=== PATIENT | female | born 1960 | race Caucasian/White ===

== ENCOUNTER → 2018-07-02 | Outpatient (CLI) | payer BC ==
--- NOTE | 2018-07-04 09:45 | MM ---
Reason for exam: screening (asymptomatic). Last mammogram was performed 1 year and 3 months ago. History: Patient is postmenopausal. Family history of breast cancer in sister at age 57. Physical Findings: A clinical breast exam by your physician is recommended on an annual basis and results should be correlated with mammographic findings. MG 3D Screening Mammo W/Cad Bilateral CC and MLO view(s) were taken. Prior study comparison: April 07, 2017, bilateral MG 3d screening mammo w/cad. June 09, 2015, bilateral MG screening mammo w CAD. The breast tissue is heterogeneously dense. This may lower the sensitivity of mammography. New grouped 1 o'clock left breast microcalcifications on 3D, these have a somewhat eggshell, round distribution suggesting early oil cyst formation. ASSESSMENT: Probably benign, BI-RAD 3 RECOMMENDATION: Follow-up diagnostic mammogram of the left breast in 6 months.
== END | disposition home or self-care (01) ==
LOC: RADMAMWWP 13:16
PROVIDERS: ATTEND Internal Medicine Geriatric Medicine
DX: Z12.31 Encounter for screening mammogram for malignant neoplasm of breast (principal)
CPT/HCPCS: 77063; 77067

== ENCOUNTER → 2019-02-18 | Outpatient (CLI) | payer BC ==
--- NOTE | 2019-02-18 14:51 | MM ---
Reason for exam: follow-up at short interval from prior study. Last mammogram was performed 8 months ago. History: Patient is postmenopausal. Family history of breast cancer in sister at age 57. Physical Findings: Nurse did not find any significant physical abnormalities on exam. MG 3D Diag Mammo W/Cad LT CC, MLO, and LM view(s) were taken of the left breast. Prior study comparison: July 02, 2018, bilateral MG 3d screening mammo w/cad. April 07, 2017, bilateral MG 3d screening mammo w/cad. The breast tissue is heterogeneously dense. This may lower the sensitivity of mammography. There is a rounded group of 5mm calcifications on the left appearing as developing fat necrosis, 6 month follow up recommended. These results were verbally communicated with the patient and result sheet given to the patient on 02/18/19. ASSESSMENT: Probably benign, BI-RAD 3 RECOMMENDATION: Follow-up diagnostic mammogram of both breasts in 6 months. Back on schedule.
== END | disposition home or self-care (01) ==
LOC: RADMAMWWP 13:32
PROVIDERS: ATTEND Internal Medicine Geriatric Medicine
DX: R92.8 Other abnormal and inconclusive findings on diagnostic imaging of breast (principal)
CPT/HCPCS: 77061; 77065

== ENCOUNTER → 2020-02-11 | Outpatient (CLI) | payer OTHER ==
--- NOTE | 2020-02-11 11:57 | BD ---
EXAMINATION TYPE: Axial Bone Density DATE OF EXAM: 02/11/2020 COMPARISON: NONE CLINICAL HISTORY: Postmenopausal female. Osteoporosis border. Height: 5 FT 3 1/2 IN Weight: 132 FRAX RISK QUESTIONS: Alcohol (3 or more units per day): NO Family History (Parent hip fracture): NO Glucocorticoids (More than 3mos): NO (Ex: prednisone, prednisolone, methylprednisolone, dexamethasone, and hydrocortisone). History of Fracture in Adulthood: NO Secondary Osteoporosis: 1. Type 1 Diabetes: NO 2. Hyperthyroidism: NO 3. Menopause before 45: NO 4. Malnutrition: NO 5. Chronic liver disease: NO Rheumatoid Arthritis: NO Current Tobacco Use: NO RISK FACTORS HISTORY OF: Family History of Osteoporosis: NO Active: YES Postmenopausal woman: AGE 49 MEDICATIONS: Additional Medications: NONE Additional History: EXAM MEASUREMENTS: Bone mineral densitometry was performed using the [employer] System. Bone mineral density as measured about the Lumbar spine is: ----- L1-L4(G/cm2): 1.210 T Score Values are as follows: ----- L2: 0.9 ----- L3: 1.0 ----- L4: -1.4 ----- L1-L4: 0.3 BASELINE Bone mineral density about the R hip (g/cm2): 0.956 Bone mineral density about the L hip (g/cm2): 0.948 T Score values are as follows: -----R Neck: -0.6 -----L Neck: -0.6 -----R Total: 0.0 -----L Total: 0.1 BASELINE IMPRESSION: Normal (Values between +1 and -1 indicate normal bone mass). Consider repeating this study in 5 year s or sooner if there is some new clinical indication. NOTE: T-SCORE=SD OF THE YOUNG ADULT MEAN.
--- NOTE | 2020-02-12 11:24 | MM ---
Reason for exam: screening (asymptomatic). Last mammogram was performed 1 year ago. History: Patient is postmenopausal. Family history of breast cancer in sister at age 57. Physical Findings: A clinical breast exam by your physician is recommended on an annual basis and results should be correlated with mammographic findings. MG 3D Screening Mammo W/Cad Bilateral CC and MLO view(s) were taken. Prior study comparison: February 18, 2019, left breast MG 3d diag mammo w/cad LT. July 02, 2018, bilateral MG 3d screening mammo w/cad. The breast tissue is heterogeneously dense. This may lower the sensitivity of mammography. Stable benign calcifications. There is no discrete abnormality. No significant changes when compared with prior studies. ASSESSMENT: Benign, BI-RAD 2 RECOMMENDATION: Routine screening mammogram of both breasts in 1 year.
== END | disposition home or self-care (01) ==
LOC: RADMAMWWP 08:18
PROVIDERS: ATTEND Internal Medicine Geriatric Medicine
DX: Z12.31 Encounter for screening mammogram for malignant neoplasm of breast (principal); M81.0 Age-related osteoporosis without current pathological fracture
CPT/HCPCS: 77063; 77067; 77080

== ENCOUNTER → 2020-07-09 | Outpatient (CLI) | payer OTHER ==
[2020-07-09 14:52] LABS: Basophils % (A) 0 %; Eosinophils % (A) 0 %; HCT 39.1 % (34.0-46.0); HGB 13.1 gm/dL (11.4-16.0); Lymphocytes # (A) 1.5 k/uL (1.0-4.8); Lymphocytes % (A) 21 %; MCH 31.4 pg (25.0-35.0); MCHC 33.5 g/dL (31.0-37.0); MCV 93.9 fL (80.0-100.0); Mean Platelet Volume 7.5; Monocytes # (A) 0.3 k/uL (0-1.0); Monocytes % (A) 4 %; Neutrophils # (A) 5.4 k/uL (1.3-7.7); Neutrophils % (A) 74 %; Platelet Count 322 k/uL (150-450); RBC 4.16 m/uL (3.80-5.40); RDW 12.9 % (11.5-15.5); WBC 7.3 k/uL (3.8-10.6)
[2020-07-09 15:19] LABS: ALT 20 U/L (4-34); AST 26 U/L (14-36); African American GFR (CKD) >90 (>60 ml/min/1.73 sqM); Albumin 4.9 g/dL (3.5-5.0); Alkaline Phosphatase 70 U/L (38-126); Anion Gap 11 mmol/L; Blood Urea Nitrogen 19 mg/dL (7-17); Calcium 11.1 mg/dL (8.4-10.2); Carbon Dioxide 29 mmol/L (22-30); Chloride 102 mmol/L (98-107); Glucose 115 mg/dL (74-99); Non-African American GFR(CKD) >90 (>60 ml/min/1.73 sqM); Potassium 4.8 mmol/L (3.5-5.1); Sodium 142 mmol/L (137-145); Total Bilirubin 0.3 mg/dL (0.2-1.3); Total Protein 9.7 g/dL (6.3-8.2)
--- NOTE | 2020-07-09 15:30 | XR ---
EXAMINATION TYPE: XR bone survey complete DATE OF EXAM: 07/09/2020 COMPARISON: NONE HISTORY: 59-year-old female multiple myeloma. TECHNIQUE: 16 views FINDINGS: Calvarium: No punched-out lytic lucencies clearly identified. Cervical spine: Uncovertebral joint arthropathy. Mild endplate spondylosis. Some reversal of the norm al cervical lordosis. No suspicious lytic lesion. No predental space widening or prevertebral soft ti ssue swelling. Thoracic spine: 12 rib bearing thoracic vertebral bodies. Also abnormal enlargement and lucency of th e right T11 pedicle. Anterior wedging deformity of T11 kyphotic deformity centered at this level. Lumbar spine: Hypertrophic facet arthropathy with grade 1 anterolisthesis L5-S1. No vertebral georgie sommer collapse. CHEST: Heart normal size. Lungs and pleural spaces are clear. No discrete lytic lesion identified of the ribs or clavicles.. Left humerus: A couple scattered 6 mm and smaller ovoid lucencies within the occipital third humeral shaft. Right humerus: Approximately 4 round lucencies in the shaft measuring up to 1.1 cm proximally. Pelvis: Overlying bowel content. No definite suspicious punched-out lytic lucency. Femurs: Subtle 7 mm round lucency in the intramedullary space of the proximal left femoral shaft. No endosteal scalloping seen. IMPRESSION: 1. Myelomatous involvement of T11 with pathologic mild anterior compression fracture. 2. Additional scattered myelomatous lucencies involving bilateral humeri and proximal left femoral sh aft.
[2020-07-10 09:55] LABS: Protein, Total 8.7 g/dL (6.2-8.2)
[2020-07-13 14:19] LABS: Albumin 4.39 g/dL (3.80-4.90); Gamma Globulin 2.37 g/dL (0.70-1.50)
== END | disposition home or self-care (01) ==
LOC: RADXRMAIN 13:08
PROVIDERS: ATTEND Internal Medicine Geriatric Medicine
DX: M48.54XA Collapsed vertebra, not elsewhere classified, thoracic region, initial encounter for fracture (principal); C90.00 Multiple myeloma not having achieved remission
CPT/HCPCS: 77075; 80053; 83970; 84165; 85025

== ENCOUNTER 2020-08-04 11:48 | Day surgery (SDC) | payer OTHER ==
[2020-08-03 09:06] VITALS: BMI 23.3
[~2020-08-04 11:48] MED LIST: LACTATED RINGERS 1,000 ML IV SCH
[2020-08-04 12:14] VITALS: RESP 16; TEMP 98.6
[2020-08-04] MEDS ORDERED: LIDOCAINE 1% (10MG/ML) FOR IV START INTRADERMA ONE (12:33)
[2020-08-04 12:35] LABS: Glucose,Whole Blood 92 mg/dL (75-99)
[2020-08-04] MEDS ORDERED: fentaNYL (PF) 50 MCG/ML 2 ML AMP ONE (12:45)
[2020-08-04] MEDS ORDERED: PROPOFOL 10 MG/ML 20 ML VIAL IV ONE (12:45)
[2020-08-04 13:20] VITALS: BP 122/61; PULSE 75
[2020-08-04 14:33] LABS: Basophils % (A) 0 %; Eosinophils % (A) 0 %; HGB 13.1 gm/dL (11.4-16.0); Lymphocytes % (A) 24 %; MCHC 32.7 g/dL (31.0-37.0); Monocytes # (A) 0.3 k/uL (0-1.0); Monocytes % (A) 4 %; Neutrophils # (A) 5.7 k/uL (1.3-7.7); Neutrophils % (A) 70 %; Platelet Count 324 k/uL (150-450); RBC 4.21 m/uL (3.80-5.40); RDW 14.3 % (11.5-15.5); Reticulocyte % 1.6 % (0.5-2.0); WBC 8.2 k/uL (3.8-10.6)
--- NOTE | 2020-08-05 03:39 | OP ---
OPERATIVE REPORT PROCEDURE PERFORMED: Bone marrow aspirate and biopsy. INDICATION: Suspected multiple myeloma. She has spontaneous pathologic fracture of her back and elevated M protein. DESCRIPTION OF PROCEDURE: After obtaining consent from the patient, the procedure was performed in the endoscopy suite under general anesthesia. The patient was put in the right lateral decubitus position. The left posterior superior iliac crest was localized. Skin was cleansed with ChloraPrep. All sterile procedures were followed. 2 mL of 1% lidocaine was used for local anesthetic. Monojet needle was inserted. About 16 mL aspirate and 2 cm core biopsy was obtained without any difficulties. Pressure applied afterwards. There was negligible blood loss. Patient tolerated the procedure very well without any immediate complications. MMODL / IJN: [id number] /
== END 2020-08-04 14:01 | disposition home or self-care (01) ==
LOC: OR 11:48
PROVIDERS: ATTEND Internal Medicine Hematology & Oncology
DX: R79.89 Other specified abnormal findings of blood chemistry (principal); R89.7 Abnormal histological findings in specimens from other organs, systems and tissues; M84.40XD Pathological fracture, unspecified site, subsequent encounter for fracture with routine healing; M48.04 Spinal stenosis, thoracic region; R93.7 Abnormal findings on diagnostic imaging of other parts of musculoskeletal system; M89.9 Disorder of bone, unspecified; Z79.899 Other long term (current) drug therapy; Z79.52 Long term (current) use of systemic steroids; Z98.890 Other specified postprocedural states; Z86.19 Personal history of other infectious and parasitic diseases; Z87.59 Personal history of other complications of pregnancy, childbirth and the puerperium; Z90.89 Acquired absence of other organs; Z87.898 Personal history of other specified conditions; Z80.3 Family history of malignant neoplasm of breast; Z80.1 Family history of malignant neoplasm of trachea, bronchus and lung
CPT/HCPCS: 85025; 85045; 38222; J3010; J2704

== ENCOUNTER → 2020-08-10 | Outpatient (CLI) | payer OTHER ==
--- NOTE | 2020-08-10 15:35 | XR ---
EXAMINATION TYPE: XR chest 2V DATE OF EXAM: 08/10/2020 COMPARISON: NONE HISTORY: Chest pain TECHNIQUE: Frontal and lateral views of the chest are obtained. FINDINGS: There is no focal air space opacity. No evidence for pneumothorax. No pleural effusion. The cardiac silhouette size is within normal limits. The osseous structures are grossly intact. IMPRESSION: 1. No acute cardiopulmonary process.
[2020-08-10 15:37] LABS: Appearance,Urine Clear (Clear); Bilirubin,Urine Negative (Negative); Blood,Urine Negative (Negative); Color,Urine Yellow; Glucose,Urine (UA) Negative (Negative); Ketones,Urine Negative (Negative); Leukocyte Esterase,Urine Small (Negative); Mucus,Urine Occasional /hpf; Nitrite,Urine Negative (Negative); Protein,Urine Trace (Negative); RBC,Urine 1 /hpf (0-5); Squamous Epithelial Cell,Urine <1 /hpf (0-4); Urobilinogen,Urine <2.0 mg/dL (<2.0); WBC,Urine 2 /hpf (0-5)
[2020-08-10 15:40] LABS: HCT 39.1 % (34.0-46.0); MCH 31.7 pg (25.0-35.0); MCHC 33.2 g/dL (31.0-37.0); MCV 95.5 fL (80.0-100.0); Platelet Count 338 k/uL (150-450); RBC 4.09 m/uL (3.80-5.40); RDW 13.9 % (11.5-15.5); WBC 9.5 k/uL (3.8-10.6)
[2020-08-10 15:47] LABS: African American GFR (CKD) >90 (>60 ml/min/1.73 sqM); Anion Gap 5 mmol/L; Blood Urea Nitrogen 27 mg/dL (7-17); Calcium 10.1 mg/dL (8.4-10.2); Carbon Dioxide 26 mmol/L (22-30); Chloride 103 mmol/L (98-107); Glucose 101 mg/dL (74-99); Non-African American GFR(CKD) >90 (>60 ml/min/1.73 sqM); Sodium 134 mmol/L (137-145)
[2020-08-10 16:00] LABS: INR 0.9 (<1.2); Prothrombin Time 9.9 sec (9.0-12.0)
[2020-08-10 16:01] LABS: Partial Thromboplastin Time 19.9 sec (22.0-30.0)
== END | disposition home or self-care (01) ==
LOC: LABPAT 14:30
PROVIDERS: ATTEND Orthopaedic Surgery Orthopaedic Surgery of the Spine
DX: Z01.818 Encounter for other preprocedural examination (principal); S22.089A Unspecified fracture of T11-T12 vertebra, initial encounter for closed fracture; R07.9 Chest pain, unspecified; X58.XXXA Exposure to other specified factors, initial encounter
CPT/HCPCS: 36415; 71046; 80048; 81001; 85027; 85610; 85730; 93005

== ENCOUNTER 2020-08-17 11:47 | Day surgery (SDC) | payer OTHER ==
[2020-08-11 09:05] VITALS: BMI 23.3
[~2020-08-17 11:47] MED LIST changes: +DEXAMETHASONE SOD PHOSPHATE 4 MG/ML 1 ML VIAL IV ONE; +HYDROmorphone 0.5 MG/0.5 ML SYRINGE IVP PRN; +LIDOCAINE 1% (10MG/ML) FOR IV START INTRADERMA PRN; +MIDAZOLAM 2 MG/2 ML VIAL IV PRN; +ONDANSETRON 4 MG/2 ML VIAL IVP ONE; +ceFAZolin 1,000 MG in SODIUM CHLORIDE 0.9% IRRIGATIO 1,000 ML IRRIGATION PRN
[2020-08-17 12:29] LABS: Glucose,Whole Blood 88 mg/dL (75-99)
[2020-08-17] MEDS ORDERED: SCOPOLAMINE 1.5MG/72HR PATCH TRANSDERM ONE (12:45)
[2020-08-17] MEDS ORDERED: MIDAZOLAM 2 MG/2 ML VIAL ONE (13:00)
[2020-08-17] MEDS ORDERED: LIDOCAINE 1% INJ 10MG/ML (20 ML MDV) ONE (13:00)
[2020-08-17] MEDS ORDERED: fentaNYL (PF) 50 MCG/ML 2 ML AMP ONE (13:00)
[2020-08-17] MEDS ORDERED: PHENYLEPHRINE-0.9% NACL SYG 1,000 MCG/10 ML SYRINGE ONE (13:00)
[2020-08-17] MEDS ORDERED: SUCCINYLCHOLINE CHLORIDE 100 MG/5 ML SYR IV ONE (13:00)
[2020-08-17] MEDS ORDERED: PROPOFOL 10 MG/ML 20 ML VIAL IV ONE (13:00)
[2020-08-17] MEDS ORDERED: LIDOCAINE 1%-EPI 1:100,000 20 ML VIAL SQ ONE ×2 (13:30)
[2020-08-17] MEDS ORDERED: IOPAMIDOL M200 10 ML VIAL MISCELLANE ONE ×2 (13:36)
[2020-08-17 14:09] VITALS: RESP 16; TEMP 97
[2020-08-17] MEDS ORDERED: KETOROLAC 15 MG/ML 1 ML VIAL IVP PRN (14:28)
[2020-08-17] MEDS ORDERED: HYDROcodone/APAP 5-325MG 1 EACH TAB PO PRN (14:28)
[2020-08-17] MEDS ORDERED: CYCLOBENZAPRINE 5 MG TAB PO PRN (14:28)
[2020-08-17] MEDS ORDERED: HYDROmorphone 0.5 MG/0.5 ML SYRINGE IVP PRN (14:28)
[2020-08-17] MEDS ORDERED: BACLOFEN 10 MG TAB PO PRN (14:29)
[2020-08-17] MEDS ORDERED: ALPRAZolam 0.25 MG TAB PO PRN (14:29)
[2020-08-17] MEDS ORDERED: ACETAMINOPHEN TAB 500 MG TAB PO PRN (14:29)
[2020-08-17] MEDS ORDERED: SODIUM CHLORIDE 0.9% 1,000 ML IV SCH (14:30)
--- NOTE | 2020-08-17 14:37 | P.OP ---
Date of Procedure: 08/17/20 Preoperative Diagnosis: T 11 pathologic compression fracture Multiple myeloma Thoracic back pain Postoperative Diagnosis: Same Anesthesia: GETA Pathology: other (T11 vertebral body biopsy sent to pathology) Condition: stable Disposition: PACU Description of Procedure: BRIEF OPERATIVE NOTE Preoperative Diagnosis: T 11 pathologic compression fracture Multiple myeloma Thoracic back pain Postoperative Diagnosis: Same Procedure: Kyphoplasty Vertebral body biopsy Use of biplanar fluoroscopic guidance Surgeon: Dr. Berry Platform Software Engineer: Hola Jeffries is present throughout the entire the case persistence during positioning, dissection, exposure, visualization, and all crucial elements of the case as well as closure. Anesthesia: General anesthesia per Dr. Christine Estimated blood loss: Less than 10 mL Specimen: Vertebral body biopsy sent to pathology in formalin Complications: None apparent Components implanted: Bone cement Disposition: To recovery room in good stable condition. OPERATIVE INDICATIONS The patient has been having issues in their back over the past couple of months. The patient has been through conservative treatment. We saw the patient and noticed abnormalities within the vertebral body. T11 and with multiple other locations of bony abnormality. Patient initiated workup for multiple myeloma and her diagnosis has been confirmed for multiple myeloma. The T11 vertebrae had collapse and seemed to be the primary source of her back pain. They attempted conservative care with bracing however they're not having any benefit despite brace use. They continue to have significant pain and debility due to their fracture. We discussed various treatment options including surgery, and the patient wishes to proceed with surgery We discussed the risk, patient's alternatives and benefits of surgery including but not limited to, risk of bleeding risk of infection, risk of need for further surgery, risk of decreased, loss of motion, loss of function, cement extravasation, nerve damage, paralysis, heart attack, blindness and . OPERATIVE SUMMARY After discussing all the risks, patient alternatives and benefits at length, the patient elected to proceed with surgical intervention, signed informed consent, and presented for their procedure. The patient was seen and examined in the preoperative holding area and the surgical site was marked. The patient was given antibiotics and brought to the operating room. The patient was sedated and intubated by anesthesia in standard fashion. The patient was positioned on to the operating room table in a prone position on the appropriate well-padded and well molded bilateral chest rolls. We were careful to pad any bony prominences and pressure points. We were careful to maintain the patient's cervical spine and good neutral alignment and position throughout. We used 2 C-arm machines to establish biplanar fluoroscopic guidance in AP and lateral positions. We were able to localize the fractures appropriately. The patient was prepped and draped in a normal standard fashion. An appropriate timeout and keystone protocol performed. We were able to proceed with the surgery. The local wound area was infiltrated with local anesthetic. An incision was made over the lateral aspect of the pedicle over the appropriate levels with a small 2 mm stab incision at T11. Intraoperative fluoroscopy was taken which showed a marker at the appropriate level of T11. With the appropriate level positively confirmed, I was able to position a sharp trocar over the lateral aspect of the pedicle. As able to advance the trocar into the pedicle and into the posterior aspect of vertebral body being careful to avoid penetration cephalad caudad or medially. The trocar was placed appropriately into the posterior aspect of vertebral body at the appropriate levels. This was confirmed with C-arm guidance. With the trocar intact I was then able to take a bone biopsy with a biopsy punch or a bony drill. The bone itself was very soft without any significant bony tissue within the vertebral body and I was only able to get small fragments and possible soft tissue and bone congealed bone within the biopsy. The biopsy specimen was passed off to be sent to pathology in formalin. I was then able to place the kyphoplasty balloon within the vertebral body. The position was checked on C-arm. I was able to inflate the balloon under low pressure and visualization with C-arm. The balloon was well enclosed within the vertebral body. The cement was prepared. With the cement at appropriate working condition the balloons were deflated and removed. I was able to place bony cement with trocar with the cement delivery device under low pressure. It had good fill within the vertebral body. There is no evidence of any extravasation of the cement posteriorly toward the canal. The cement was well contained at the appropriate levels of T11. The cement was allowed to cure appropriately. The trochars removed and final images were taken on C-arm. This showed the cement at the appropriate levels of T11. We were able to proceed with closure. The wound was cleaned and dried and dressed with the appropriate dressing. The drapes were broken down. The patient was gently rolled back onto their hospital bed being careful to maintain their cervical spine and good neutral alignment and position. They were woken up by anesthesia, extubated, and brought to the recovery room in good stable condition. The patient will be admitted to the hospital for observation and for appropriate postoperative care, medical management and monitoring. We will continue to follow them closely about the postoperative course.
[2020-08-17] MEDS ORDERED: KETOROLAC 15 MG/ML 1 ML VIAL IVP ONE (14:50)
[2020-08-17 15:49] VITALS: BP 125/71; PULSE 70
[2020-08-17] MEDS ORDERED: ACETAMINOPHEN TAB 325 MG TAB PO SCH (18:00)
[2020-08-17] MEDS ORDERED: dexAMETHasone 4 MG TAB PO SCH (21:00)
--- NOTE | 2020-08-17 21:11 | XR ---
EXAMINATION TYPE: XR thoracic spine 2V, FL guidance operating room DATE OF EXAM: 08/17/2020 COMPARISON: NONE HISTORY: 59-year-old female kyphoplasty FINDINGS: Intraprocedural images during kyphoplasty in the lower thoracic spine. FLUOROSCOPY Fluoroscopy time of 50 seconds was used during lower thoracic kyphoplasty. 4 image/s document/s the procedure. IMPRESSION: Intraprocedural fluoroscopy as above.
[2020-08-18] MEDS ORDERED: MULTIVITAMINS, THERA 1 EACH TAB PO SCH (09:00)
[2020-08-18] MEDS ORDERED: ASCORBIC ACID 500 MG TAB PO SCH (09:00)
[2020-08-18] MEDS ORDERED: CHOLECALCIFEROL 25 MCG (1000 IU) TABLET PO SCH (09:00)
== END 2020-08-17 16:24 | disposition home or self-care (01) ==
LOC: OR 11:47
PROVIDERS: ATTEND Orthopaedic Surgery Orthopaedic Surgery of the Spine
DX: M48.54XA Collapsed vertebra, not elsewhere classified, thoracic region, initial encounter for fracture (principal); C90.00 Multiple myeloma not having achieved remission; I10 Essential (primary) hypertension; M43.16 Spondylolisthesis, lumbar region; Z79.52 Long term (current) use of systemic steroids; Z79.899 Other long term (current) drug therapy
CPT/HCPCS: 22513; 88342; 88307; 88341; 72070; C1713; J2250; J0690; J2405; J2001; J3010; J1885; J2370; J0330; J2704; J1170; Q9966

== ENCOUNTER → 2020-10-19 | Outpatient (CLI) | payer OTHER ==
--- NOTE | 2020-10-19 09:45 | CT ---
EXAMINATION TYPE: CT thoracic spine wo con DATE OF EXAM: 10/19/2020 COMPARISON: Bone survey July 09, 2020. HISTORY: Multiple Myeloma CT DLP: 1316 mGycm Automated exposure control for dose reduction was used. FINDINGS: There is vertebroplasty at T11 vertebral level through mild to moderate compression fracture deformit y. There are multiple small lucent lesions consistent with myeloma deposits throughout the thoracic s pine seen better on CT versus plain films. For reference there are several lesions noted sagittal mauricio ge 14 T4, T6, and T7 levels. Mild height loss involving the superior T9 endplate. Alignment stable an d satisfactory. Slight scoliotic curvature on the frontal view. Spinal canal preserved. Visualized lungs are clear. Mild coronary artery calcification proximal LAD. Additional lucent lesions in the sternum thought present on sagittal images. IMPRESSION: Interval vertebroplasty at T11 level. Satisfactory alignment. Subtle round lucent lesions thought to reflect additional myeloma deposits throughout the thoracic spine and sternum are noted.
--- NOTE | 2020-10-19 10:00 | CT ---
EXAMINATION TYPE: CT lumbar spine wo con DATE OF EXAM: 10/19/2020 8:35 AM COMPARISON: X-ray bone survey July 09, 2020. HISTORY: Myeloma CT DLP: 977 mGycm Automated exposure control for dose reduction was used. Unenhanced CT of the lumbar spine was performed. Bone and soft tissue window settings are submitted as well as coronal and sagittal reconstructions. There are 5 lumbar-type vertebra. Seen better on CT versus plain films there are multiple scattered l ytic or lucent lesions throughout the lumbar vertebra including posterior elements. There is involvem ent of the visualized sacrum and bilateral iliac bones, largest lesion is a 1.8 cm right iliac bone l esion coronal image 25. Vertebral body heights and alignment are satisfactory. Mild to moderate disc space narrowing L2-L3 and L5-S1 levels. Multilevel posterior disc herniations efface the anterior the luis sac on sagittal and axial images largest identified at L2-L3 and L3-L4 levels. Visualized upper abdomen shows no suspicious abnormality. Mild calcified plaque of the aorta extends into branch vessels. IMPRESSION: Diffuse myelomatous involvement of osseous structures including entire lumbar spine seen better on CT versus plain films.
== END | disposition home or self-care (01) ==
LOC: RADCTMAIN 08:06
PROVIDERS: ATTEND Internal Medicine Hematology & Oncology
DX: Z03.89 Encounter for observation for other suspected diseases and conditions ruled out (principal); C90.00 Multiple myeloma not having achieved remission
CPT/HCPCS: 72128; 72131

== ENCOUNTER → 2021-05-20 | Outpatient (CLI) | payer OTHER ==
--- NOTE | 2021-05-24 11:41 | MM ---
Reason for exam: screening (asymptomatic). Last mammogram was performed 1 year and 3 months ago. History: Patient is postmenopausal and has history of other cancer at age 59. Family history of breast cancer in sister at age 57. Physical Findings: A clinical breast exam by your physician is recommended on an annual basis and results should be correlated with mammographic findings. MG 3D Screening Mammo W/Cad Bilateral CC and MLO view(s) were taken. Prior study comparison: February 11, 2020, bilateral MG 3d screening mammo w/cad. February 18, 2019, left breast MG 3d diag mammo w/cad LT. The breast tissue is heterogeneously dense. This may lower the sensitivity of mammography. Benign oil cyst calcification on the left. No significant changes when compared with prior studies. ASSESSMENT: Negative, BI-RAD 1 RECOMMENDATION: Routine screening mammogram of both breasts in 1 year.
== END | disposition home or self-care (01) ==
LOC: RADMAMWWP 09:59
PROVIDERS: ATTEND Internal Medicine Geriatric Medicine
DX: Z12.31 Encounter for screening mammogram for malignant neoplasm of breast (principal); Z78.0 Asymptomatic menopausal state; Z80.3 Family history of malignant neoplasm of breast
CPT/HCPCS: 77063; 77067

== ENCOUNTER → 2022-07-28 | Outpatient (CLI) | payer OTHER ==
--- NOTE | 2022-07-29 09:05 | MM ---
Reason for Exam: Screening (asymptomatic). Last mammogram was performed 1 year(s) and 2 month(s) ago. Patient History: Menarche at age 11. First Full-Term at age 24. Postmenopausal. Other cancer, age 59. Sister had breast cancer, age 57. Risk Values: Nati 5 year model risk: 3.1%. NCI Lifetime model risk: 12.8%. Prior Study Comparison: 02/18/2019 Left Diagnostic Mammogram, [facility]. 02/11/2020 Bilateral Screening Mammogram, [facility]. 05/20/2021 Bilateral Screening Mammogram, [facility]. Tissue Density: The breast tissue is heterogeneously dense. This may lower the sensitivity of mammography. Findings: Analyzed By CAD. There is no suspicious group of microcalcifications or new suspicious mass in either breast. Benign calcifications within both breasts. Overall Assessment: Benign, BI-RAD 2 Management: Screening Mammogram of both breasts in 1 year. A clinical breast exam by your physician is recommended on an annual basis and results should be correlated with mammographic findings. Electronically signed and approved by: Jamie Pitt D.O.
== END | disposition home or self-care (01) ==
LOC: RADMAMWWP 09:16
PROVIDERS: ATTEND Internal Medicine Geriatric Medicine
DX: Z12.31 Encounter for screening mammogram for malignant neoplasm of breast (principal); Z78.0 Asymptomatic menopausal state; Z80.3 Family history of malignant neoplasm of breast
CPT/HCPCS: 77063; 77067

== ENCOUNTER → 2022-10-14 | Outpatient (CLI) | payer OTHER ==
--- NOTE | 2022-10-17 11:13 | BD ---
EXAMINATION TYPE: Axial Bone Density DATE OF EXAM: 10/14/2022 CLINICAL HISTORY: 61 years old Female. ICD-10 CODE: M81.0 OSTEOPOROSIS AGE RELATED Height: 63.5" Weight: 133.1lbs FRAX RISK QUESTIONS: Alcohol (3 or more units per day): No Family History (Parent hip fracture): No Glucocorticoids (More than 3mos): Yes, in spring through 04/2021 for cancer diagnosis, multi ple myeloma (Ex: prednisone, prednisolone, methylprednisolone, dexamethasone, and hydrocortisone). History of Fracture in Adulthood: yes, fx of (thoracic) vertebrae Secondary Osteoporosis: 1. Type 1 Diabetes: No 2. Hyperthyroidism: No 3. Menopause before 45: no 4. Malnutrition: no 5. Chronic liver disease: no Rheumatoid Arthritis: no Current Tobacco Use: no RISK FACTORS HISTORY OF: Hip Fracture (Right/Left): no Spine Fracture: yes, thoracic vertebrae History of Wrist Fracture: no Surgery to Spine/Hip(right/left)/Wrist (right/left): yes, kyphoplasty on fractured vertebrae of lower thoracic (per report in PACS on 08/17/2020) Family History of Osteoporosis: no Active: yes Diet low in dairy products/other sources of calcium: no Postmenopausal woman: yes Lost more than 2 inches in height since high school: no Frequent falls: no Poor Health: no Hyperparathyroidism: no Adrenal Insufficiency: no MEDICATIONS: Prednisone or other steroids: yes How Long: several months in 2020 Thyroid Medications: yes Which medication: levothyroxine How Long: approximately 6 months Osteoporosis Medications: no Additional Medications: Levothyroxine, Revlimid for multiple myeloma, calcium, vitam d3, omeprazole, gabapentin Additional History: Multiple Myeloma dx in 2020, lower thoracic kyphoplasty in 2020 EXAM MEASUREMENTS: Bone mineral densitometry was performed using the [employer] System. Bone mineral density as measured about the Lumbar spine is: ----- L1-L4(G/cm2): 1.170 T Score Values are as follows: ----- L1: 0.5 ----- L2: 0.8 ----- L3: 0.1 ----- L4: -1.3 ----- L1-L4: -0.1 Z Score Values are as follows: ----- L1: 2.1 ----- L2: 2.5 ----- L3: 1.8 ----- L4: 0.3 ----- L1-L4: 1.6 Bone mineral density has: decreased 3.3% since study of: 02/11/2020 Bone mineral density about the R hip (g/cm2): 0.969 Bone mineral density about the L hip (g/cm2): 1.032 T Score values are as follows: -----R Neck: -1.2 -----L Neck: -0.5 -----R Total: -0.3 -----L Total: 0.2 Z Score values are as follows: -----R Neck: 0.4 -----L Neck: 1.0 -----R Total: 0.9 -----L Total: 1.4 Bone mineral density has: decreased 1.3% since study of: 02/11/2020 FRAX%s: The graph provided illustrates a 20.1% chance for a major osteoporotic fx and a 1.9% chance f or the hips probability for fx in 10 years time. IMPRESSION: Normal (Values between +1 and -1 indicate normal bone mass). Consider repeating this study in 5 year s or sooner if there is some new clinical indication. NOTE: T-SCORE=SD OF THE YOUNG ADULT MEAN.
== END | disposition home or self-care (01) ==
LOC: RADBDWWP 09:51
PROVIDERS: ATTEND Internal Medicine Geriatric Medicine
DX: M81.0 Age-related osteoporosis without current pathological fracture (principal)
CPT/HCPCS: 77080

== ENCOUNTER → 2023-09-27 | Outpatient (CLI) | payer OTHER ==
--- NOTE | 2023-10-03 19:52 | MM ---
Reason for Exam: Screening (asymptomatic). Last mammogram was performed 1 year(s) and 2 month(s) ago. Patient History: Menarche at age 11. First Full-Term at age 24. Postmenopausal. Other cancer, age 59. Sister had breast cancer, age 57. Risk Values: Nati 5 year model risk: 3.2%. NCI Lifetime model risk: 12.4%. Prior Study Comparison: 02/11/2020 Bilateral Screening Mammogram, [facility]. 05/20/2021 Bilateral Screening Mammogram, [facility]. 07/28/2022 Bilateral MG 3D screening mammo w/cad, [facility]. Tissue Density: The breasts are heterogeneously dense, which may obscure small masses. Findings: Analyzed By CAD. There is no suspicious group of microcalcifications or new suspicious mass in either breast. Overall Assessment: Negative, BI-RAD 1 Management: Screening Mammogram of both breasts in 1 year. See note below in regards to patient's increased 5 year Nati score. Patient should continue monthly self-breast exams. A clinical breast exam by your physician is recommended on an annual basis. This exam should not preclude additional follow-up of suspicious palpable abnormalities. Note on Nati scores and lifetime risk: 1. A Nati score greater than 3% is considered moderate risk. If this is the case, consider specialist referral to assess eligibility for a risk reducing agent. 2. If overall lifetime risk for the development of breast cancer is 20% or higher, the patient may qualify for future screening with alternating mammogram and breast MRI. Electronically signed and approved by: Shaunna Torres M.D. Radiologist
== END | disposition home or self-care (01) ==
LOC: RADMAMWWP 09:36
PROVIDERS: ATTEND Internal Medicine Geriatric Medicine
DX: Z12.31 Encounter for screening mammogram for malignant neoplasm of breast (principal); Z80.3 Family history of malignant neoplasm of breast; Z78.0 Asymptomatic menopausal state
CPT/HCPCS: 77063; 77067

== ENCOUNTER → 2023-12-20 | Outpatient (CLI) | payer OTHER | END | disposition home or self-care (01) | LOC: LABPRL 12:34 | PROVIDERS: ATTEND Internal Medicine Hematology & Oncology | DX: C90.00 Multiple myeloma not having achieved remission (principal); K21.9 Gastro-esophageal reflux disease without esophagitis; G89.3 Neoplasm related pain (acute) (chronic); R19.7 Diarrhea, unspecified | CPT/HCPCS: 80053; 82784; 83883; 84165; 86334 ==

== ENCOUNTER → 2024-10-15 | Outpatient (CLI) | payer MEDICARE ==
--- NOTE | 2024-10-15 15:18 | MM ---
Reason for Exam: Screening (asymptomatic). Last mammogram was performed 1 year(s) and 1 month(s) ago. Patient History: Menarche at age 11. First Full-Term at age 24. Postmenopausal. Other cancer, age 59. Sister had breast cancer, age 57. Risk Values: Nati 5 year model risk: 3.3%. NCI Lifetime model risk: 12.0%. Prior Study Comparison: 05/20/2021 Bilateral Screening Mammogram, [facility]. 07/28/2022 Bilateral MG 3D screening mammo w/cad, [facility]. 09/27/2023 Bilateral MG 3D screening mammo w/cad, [facility]. Tissue Density: The breasts are heterogeneously dense, which may obscure small masses. Findings: Analyzed By CAD. A large benign appearing round calcification in the left breast is redemonstrated. There is no suspicious group of microcalcifications or new suspicious mass in either breast. Overall Assessment: Benign, BI-RAD 2 Management: Screening Mammogram of both breasts in 1 year. . Patient should continue monthly self-breast exams. A clinical breast exam by your physician is recommended on an annual basis. This exam should not preclude additional follow-up of suspicious palpable abnormalities. Note on Nati scores and lifetime risk: 1. A Nati score greater than 3% is considered moderate risk. If this is the case, consider specialist referral to assess eligibility for a risk reducing agent. 2. If overall lifetime risk for the development of breast cancer is 20% or higher, the patient may qualify for future screening with alternating mammogram and breast MRI. [facility], , 10/15/2024 3:15 PM. Electronically signed and approved by: Saulo Taylor M.D.
--- NOTE | 2024-10-16 07:04 | BD ---
EXAMINATION TYPE: Axial Bone Density DATE OF EXAM: 10/15/2024 CLINICAL HISTORY: 63 years old Female. ICD-10 CODE: M81.0 OSTEOPOROSIS SCREEN , Additional History: Height: 5 ft 3 in Weight: 131 FRAX RISK QUESTIONS: Alcohol (3 or more units per day): no Family History (Parent hip fracture): no Glucocorticoids (More than 3mos): yes (Ex: prednisone, prednisolone, methylprednisolone, dexamethasone, and hydrocortisone). History of Fracture in Adulthood: no Secondary Osteoporosis: 1. Type 1 Diabetes: no 2. Hyperthyroidism: no 3. Menopause before 45: no 4. Malnutrition: no 5. Chronic liver disease: no Rheumatoid Arthritis: no Current Tobacco Use: no RISK FACTORS HISTORY OF: Surgery to Spine/Hip(right/left)/Wrist (right/left): t spine fx from multiple myeloma MEDICATIONS: Thyroid Medications: levothyroxine Which medication: 3 years Osteoporosis Medications: none EXAM MEASUREMENTS: Bone mineral densitometry was performed using the [employer]. Bone mineral density as measured about the Lumbar spine is: ----- L1-L4(G/cm2): 1.213 T Score Values are as follows: ----- L1: 1.0 ----- L2: 0.7 ----- L3: 0.5 ----- L4: -0.9 ----- L1-L4: 0.3 Z Score Values are as follows: ----- L1: 2.8 ----- L2: 2.5 ----- L3: 2.3 ----- L4: 0.9 ----- L1-L4: 2.0 Bone mineral density has: increased 3.7 % since study of: 2022 Bone mineral density about the R hip (g/cm2): 0.854 Bone mineral density about the L hip (g/cm2): 0.949 T Score values are as follows: -----R Neck: -1.3 -----L Neck: -0.6 -----R Total: -0.1 -----L Total: 0.0 Z Score values are as follows: -----R Neck: 0.3 -----L Neck: 1.0 -----R Total: 1.2 -----L Total: 1.4 Bone mineral density has: increased 0.1 % since study of: 2022 FRAX%s: The graph provided illustrates a 21.4 % chance for a major osteoporotic fx and a 2.6 % chanc e for the hips probability for fx in 10 years time. IMPRESSION: Osteopenia (T Score between -2.5 and -1) remains present. There is slightly increased risk of fracture and the patient may be considered for treatment. Re-Screen 2-5 years. NOTE: T-SCORE=SD OF THE YOUNG ADULT MEAN. [facility], , 10/16/2024 7:02 AM
== END | disposition home or self-care (01) ==
LOC: RADMAMWWP 14:51
PROVIDERS: ATTEND Internal Medicine Geriatric Medicine
DX: Z12.31 Encounter for screening mammogram for malignant neoplasm of breast (principal); R92.333 Mammographic heterogeneous density, bilateral breasts; M81.0 Age-related osteoporosis without current pathological fracture; M85.89 Other specified disorders of bone density and structure, multiple sites; Z78.0 Asymptomatic menopausal state; Z80.3 Family history of malignant neoplasm of breast
CPT/HCPCS: 77063; 77067; 77080